=== PATIENT | female | born 1970 | race Caucasian/White ===

== ENCOUNTER 2016-10-13 01:01 | Observation (INO) | payer OTHER ==
--- NOTE | 2016-10-13 01:29 | ER Document Report ---
ED General - General Chief Complaint: Chest Pressure Stated Complaint: CHEST DISCOMFORT Time Seen by Provider: 10/13/16 01:27 Notes: Patient is a pleasant 45-year-old female presents with complaint of some pressure in her chest. She feels sometimes will radiate into her shoulders. Her left arm will sometimes become tingling. She has been on and off for a week. She notices that she gets up and exerts herself is more likely to occur. She is lying at rest it does not occur. No fevers. No vomiting. No difficulty breathing. She has no history of coronary disease. She does have family history of coronary disease. Her dad at age 61. She says her dad started to have heart problems in his mid 40s. No recent leg pain. No history of PE or DVT. No other complaints at this time. TRAVEL OUTSIDE OF THE [place] IN LAST 30 DAYS: No - Related Data Allergies/Adverse Reactions: No Known Allergies Allergy (Unverified 10/13/16 01:14) Past Medical History - Social History Smoking Status: Never Smoker Frequency of alcohol use: None Drug Abuse: None Family History: Reviewed & Not Pertinent Renal/ Medical History: Denies: Hx Peritoneal Dialysis Review of Systems - Review of Systems Notes: My Normal Review Basic REVIEW OF SYSTEMS: CONSTITUTIONAL : Denies fever, chills, or sweats. Denies recent illness. CARDIOVASCULAR: Has chest pain. RESPIRATORY: Denies cough, cold, or chest congestion. Denies shortness of breath, difficulty breathing, or wheezing. GASTROINTESTINAL: Denies abdominal pain. Denies nausea, vomiting, or diarrhea. Denies constipation. Last BM: MUSCULOSKELETAL: Denies neck or back pain or joint pain or swelling. SKIN: Denies rash or skin lesions. NEUROLOGICAL: Denies altered mental status or loss of consciousness. Denies headache. Denies weakness or paralysis or loss of use of either side. Denies problems with gait or speech. Denies sensory or motor loss. ALL OTHER SYSTEMS REVIEWED AND NEGATIVE. Physical Exam - Vital signs Vitals: Temp Pulse Resp BP Pulse Ox 97.7 F 87 18 150/95 H 97 10/13/16 01:12 10/13/16 01:12 10/13/16 01:12 10/13/16 01:12 10/13/16 01:12 - Notes Notes: General Appearance: Well nourished, alert, cooperative, no acute distress, no obvious discomfort. Vitals: reviewed, See vital signs table. Head: no swelling or tenderness to the head Eyes: PERRL, EOMI, Conjuctiva clear Mouth: No decreasd moisture Throat: No tonsillar inflammation, No airway obstruction, No lymphadenopathy Chest wall: No reproducible pain to palpation over chest wall. Lungs: No wheezing, No rales, No rhonci, No accessory muscle use, good air exchange bilaterally. Heart: Normal rate, Regular rythm, No murmur, no rub Abdomen: Normal BS, soft, No rigidity, No abdominal tenderness, No guarding, no rebound, no abdominal masses, no organomegaly Extremities: strength 5/5 in all extremities, good pulses in all extremities, no swelling or tenderness in the extremities, no edema. Skin: warm, dry, appropriate color, no rash Neuro: speech clear, oriented x 3, normal affect, responds appropriately to questions. Course - Vital Signs Vital signs: Temp Pulse Resp BP Pulse Ox 97.8 F 87 16 128/76 H 96 10/13/16 01:32 10/13/16 01:12 10/13/16 02:31 10/13/16 02:31 10/13/16 02:31 - Laboratory Result Diagrams: 10/13/16 01:48 10/13/16 01:48 Laboratory results interpreted by me: 10/13/16 10/13/16 01:48 01:48 MCH 25.8 L RDW 14.1 H Glucose 127 H - EKG Interpretation by Me Additional EKG results interpreted by me: 10/13/16 01:28 EKG is reviewed and interpreted by me. EKG shows normal sinus rhythm with a rate of [address] segment elevation or depression. No ischemic T-wave inversions. UT interval, QRS duration, QTc intervals are within normal range. No old EKG available for comparison. - Transfer of Care Notes: 10/13/16 03:05 His chest pain-free. She has no risk factors for PE. Patient says is more consistent with possible coronary disease based on the fact that she has chest pressure it is worse when she exerts herself. She does have a strong family history. I did speak with the hospitalist who agrees to admit the patient. Dictation of this chart was performed using voice recognition software; therefore, there may be some unintended grammatical errors. Discharge - Discharge Clinical Impression: Chest pain Qualifiers: Chest pain type: unspecified Qualified Code(s): R07.9 - Chest pain, unspecified Condition: Stable Disposition: ADMITTED OBSERVATION Admitting Provider: Hospitalist Unit Admitted: Telemetry
[2016-10-13 01:57] LABS: ABSOLUTE BASOPHILS # (AUTO) 0.2 10^3/uL (0.0-0.2); ABSOLUTE EOSINOPHILS # (AUTO) 0.5 10^3/uL (0.0-0.6); ABSOLUTE LYMPHOCYTES (AUTO) 2.2 10^3/uL (0.5-4.7); ABSOLUTE MONOCYTES (AUTO) 0.9 10^3/uL (0.1-1.4); ABSOLUTE NEUT (AUTO) 6.2 10^3/uL (1.7-8.2); BASOPHILS % (AUTO) 1.8 % (0-2); HEMATOCRIT 39.1 % (36.0-47.0); HEMOGLOBIN 12.6 g/dL (12.0-15.5); HGB HCT DIFFERENCE -1.3; LYMPHOCYTES % (AUTO) 22.5 % (13-45); MEAN CORPUSCULAR HEMOGLOBIN 25.8 pg (27.0-33.4); MEAN CORPUSCULAR HGB CONC 32.3 g/dL (32.0-36.0); MEAN CORPUSCULAR VOLUME 80 fl (80-97); MONOCYTES % (AUTO) 8.9 % (3-13); RED BLOOD COUNT 4.87 10^6/uL (3.72-5.28); RED CELL DISTRIBUTION WIDTH 14.1 % (11.5-14.0); SEGMENTED NEUTROPHILS % (AUTO) 61.8 % (42-78)
[2016-10-13 02:13] LABS: ALANINE AMINOTRANSFERASE 35 U/L (9-52); ALBUMIN 3.8 g/dL (3.5-5.0); ALKALINE PHOSPHATASE 76 U/L (38-126); ANION GAP 10 (5-19); ASPARTATE AMINO TRANSFERASE 32 U/L (14-36); BILIRUBIN,DIRECT 0.3 mg/dL (0.0-0.4); BILIRUBIN,TOTAL 0.4 mg/dL (0.2-1.3); BLOOD UREA NITROGEN 18 mg/dL (7-20); CALCIUM 8.7 mg/dL (8.4-10.2); CARBON DIOXIDE 26 mmol/L (22-30); CHLORIDE 106 mmol/L (98-107); CREATINE KINASE 50 U/L (30-135); CREATININE RESULT 0.58 mg/dL (0.52-1.25); GLUCOSE 127 mg/dL (75-110); SODIUM 142.1 mmol/L (137-145); TOTAL PROTEIN 7.1 g/dL (6.3-8.2)
--- NOTE | 2016-10-13 02:20 | RADIOLOGY REPORT (SQ) ---
EXAM DESCRIPTION: CHEST SINGLE VIEW COMPLETED DATE/TIME: 10/13/2016 2:02 am REASON FOR STUDY: chest pain COMPARISON: None. EXAM PARAMETERS: NUMBER OF VIEWS: One view. TECHNIQUE: Single frontal radiographic view of the chest acquired. RADIATION DOSE: NA LIMITATIONS: None. FINDINGS: LUNGS AND PLEURA: No opacities, masses or pneumothorax. No pleural effusion. MEDIASTINUM AND HILAR STRUCTURES: No masses. Contour normal. HEART AND VASCULAR STRUCTURES: Heart normal in size. Normal vasculature. BONES: No acute findings. Disc desiccation. HARDWARE: None in the chest. OTHER: Hemidiaphragmatic eventration. IMPRESSION: NO ACUTE RADIOGRAPHIC FINDING IN THE CHEST. TECHNICAL DOCUMENTATION: JOB ID: [id number]
[2016-10-13 02:25] LABS: CREATINE KINASE MB 0.64 ng/mL (<4.55)
[2016-10-13 02:26] LABS: TROPONIN I < 0.012 ng/mL
[2016-10-13] MEDS ORDERED: ASPIRIN 325 MG TABLET PO ONE (03:06)
[2016-10-13] MEDS ORDERED: ACETAMINOPHEN 325 MG TABLET PO PRN (03:07)
[2016-10-13] MEDS ORDERED: PROMETHAZINE HCL 25 MG TABLET PO PRN (05:05)
--- NOTE | 2016-10-13 05:21 | PDOC H&P ---
History of Present Illness Admission Date/PCP: 10/13/16 03:14 YOLY Williamson, [place], [place] Patient complains of: chest pain History of Present Illness: TRINI DUNN is a 45 year old obese female with negative personal history of coronary artery disease who presents to the emergency room for evaluation of a one-week history of intermittent episodes of substernal pressure -like discomfort that will radiate into both her shoulders, along with mild associated tingling of her left upper extremity. Discomfort is more noticeable with exertion. Does not occur at rest. No associated nausea vomiting, fever or chills, or shortness of breath. Negative exercise treadmill study at least 10 years ago for similar somewhat more pronounced symptoms at that time. No history of hypertension, myocardial infarction, or congestive heart failure. No history of pulmonary embolus or DVT. No recent long trip with prolonged inactivity, or unusual lower extremity swelling or tenderness, with the exception that over the past several days she has noted mild discomfort, without swelling, of her right calf. Last noted the discomfort approximately 24 hours ago. Family history is remarkable for father with congestive heart failure diagnosed in his 40s. Underwent 2 cardiac valve replacements at 59 years of age. Subsequently 2 years later of septic complications, also requiring dialysis at that time. Negative family history of cardiac disease otherwise. Currently resting quietly, chest pain-free. Patient has been discussed with emergency room physician who evaluated the patient. Laboratory results are listed in [facility] and are reviewed. X-ray summary results are listed below, with full report(s) reviewed. . EKG reviewed. No prior EKG available for comparison. Social history/personal habits: Single. No children. 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 Denies use of alcohol, tobacco, or illicit drugs. Allergies/adverse reactions are listed in [facility] and are reviewed. Home medications none. REVIEW OF SYSTEMS: Constitutional: No fever or chills. Eyes: Wears glasses. ENT: No swallowing problems or complaints. Denies hearing loss. Pulmonary: No current complaints. Cardiovascular: See history and present illness. Gastrointestinal: No current complaints, including nausea or vomiting. Skin: No current complaints, including rashes. Hematologic: Easy bruising. Neurologic: No current complaints, including numbness or tingling. Musculoskeletal: Occasional right knee pain. See history and present illness. Psychiatric: Denies anxiety or depression. Endocrine: No current complaints, including polyuria. Genitourinary: No current complaints, including dysuria. PHYSICAL EXAMINATION: 5 feet 8 inches tall. 108.9 kg. BMI 36.5 kg/m.Temperature 97.8. Pulse 72 and regular. Blood pressure 132/76. Respirations are 18 and unlabored. 100% saturation on room air. Obese otherwise well-developed female appearing approximately her stated age. Pleasant awake alert and cooperative. No obvious distress other than perhaps mildly anxious. Female floor director of emergency nursing Belle is present. Skin is warm and dry. No grossly obvious evidence of rash in areas of skin examined. No subcutaneous nodules palpated. ENT: Hearing grossly normal to normal conversation. Tongue midline on protrusion pink and slightly tacky. Eyes: No scleral icterus. Pupils equal and reactive to light at 4 mm. Halaula conjunctivae. Neck is supple and nontender to gentle active range of motion and palpation. Midline trachea. No palpable thyroid nodule mass enlargement or tenderness. Lymphatic: No palpable cervical or clavicular nodes. Neck and lymphatic exams limited by patient body habitus. Psychiatric: Reasonable insight into acute and chronic medical issues. Oriented to time location and why here. Lungs: Auscultation reveals clear and equal breath sounds bilaterally. No use of accessory respiratory muscles. Cardiovascular: Heart regular rate and rhythm, without gallop murmur or rub. No carotid or abdominal aortic bruits. No ankle or pedal edema. Palpable dorsalis pedis pulses. Abdomen:soft somewhat obese nontender with positive bowel sounds. Unable to adequately evaluate abdomen for masses or organomegaly due to body habitus. Compression of her sternum does not reproduce her prior chest discomfort. Compression of her left epigastrium perhaps slightly does. Extremities: Feet are warm and dry. No calf tenderness to compression. No palpable venous cord in either calf. No grossly obvious visual evidence of calf swelling. Gentle manipulation of lower extremities fails to reveal any obvious evidence of injury or instability to knees hips or ankles. Neurologic: Light touch intact and symmetric at upper and lower extremities. Motor function of major muscle groups upper and lower extremities 5 over 5 and symmetric. Patellar reflexes absent. Absent Babinski. No nystagmus. Past Medical History Cardiac Medical History: Denies: Congestive Heart Failure, DVT, Myocardial Infarction, Hyperlipidema, Hypertension, Pulmonary Embolism Pulmonary Medical History: Denies: Asthma, Bronchitis, Chronic Obstructive Pulmonary Disease (COPD), Pneumonia, Sleep Apnea, Tuberculosis EENT Medical History: Reports: Eyes - Wears glasses Denies: Ears Neurological Medical History: Denies: Hemorrhagic CVA, Ischemic CVA, Seizures Endocrine Medical History: Denies: Diabetes Mellitus Type 1, Diabetes Mellitus Type 2, Hyperthyroidism, Hypothyroidism Renal/ Medical History: Reports: Nephrolithiasis - History of Denies: End Stage Renal Disease GI Medical History: Denies: Cirrhosis, Gastroesophageal Reflux Disease, Hepatitis, Peptic Ulcer Disease Musculoskeltal Medical History: Reports: Other - Intermittent mild right knee pain without diagnosis of arthritis Psychiatric Medical History: Denies: Alcohol Dependency, Bipolar Disorder, Depression, General Anxiety Disorder, Substance Abuse, Tobacco Dependency Hematology: Reports: Other - Easy bruising Denies: Anemia, Bleeding Tendencies Infectious Medical History: Reports: 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 infection Denies: Clostridium Difficile, Hepatitis B, Hepatitis C Past Surgical History Past Surgical History: Reports: None Social History Information Source: Patient, Emergency Med Personnel, [facility] Records Smoking Status: Never Smoker Frequency of Alcohol Use: None Drugs: None - Advance Directive Resuscitation Status: Full Code Surrogate healthcare decision maker:: Mother Family History Family History: Reviewed & Not Pertinent Parental Family History Reviewed: Yes - Mother alive and hypertensive; father of sepsis; valve replacement x 2 Children Family History Reviewed: NA Sibling(s) Family History Reviewed.: Yes - Healthy Medication/Allergy Home Medications: No Home Medications 10/13/16 Allergies/Adverse Reactions: No Known Allergies Allergy (Unverified 10/13/16 01:14) Physical Exam Vital Signs: Temp Pulse Resp BP Pulse Ox 97.8 F 73 18 132/76 H 100 10/13/16 04:18 10/13/16 04:28 10/13/16 04:18 10/13/16 04:18 10/13/16 04:18 Results Impressions: Chest X-Ray 10/13/16 01:33 IMPRESSION: NO ACUTE RADIOGRAPHIC FINDING IN THE CHEST. Assessment & Plan - Diagnosis (1) Chest pain Qualifiers: Chest pain type: unspecified Qualified Code(s): R07.9 - Chest pain, unspecified Is this a current diagnosis for this admission?: YesPlan: Patient will be placed in observation bed under chest pain protocol. Patient understands to notify staff should chest pain recur. Serial troponin . Repeat EKG. lipid panel. I have strongly encouraged patient to be careful getting out of bed, to avoid a fall with injury. Knee high SCDs for DVT prophylaxis, along with subcu Lovenox. Impression and plans were discussed with patient, who concurs. Time spent in evaluation and management of patient: 64 minutes. (2) DVT prophylaxis Is this a current diagnosis for this admission?: Yes (3) Right calf pain Is this a current diagnosis for this admission?: YesPlan: Stat d-dimer. Bilateral lower extremity venous Doppler study. Clinical impression that patient has right lower extremity DVT is low. (4) Obesity Qualifiers: Obesity type: unspecified obesity type Is this a current diagnosis for this admission?: Yes
[2016-10-13] MEDS: LANSOPRAZOLE 30 MG TAB.RAP.DR PO SCH (05:31)
--- NOTE | 2016-10-13 07:11 | EKG REPORT ---
SEVERITY:- BORDERLINE ECG - SINUS RHYTHM PROBABLE LEFT ATRIAL ABNORMALITY : Confirmed by: Onesimo Baltazar 13-Oct-2016 07:11:08
[2016-10-13 07:20] LABS: Direct HDL 35 mg/dL (>40); TRIGLYCERIDES 90 mg/dL (<150)
[2016-10-13 07:31] LABS: DIRECT LDL 85 mg/dL (<100)
[2016-10-13] MEDS: ENOXAPARIN SODIUM INJ 40 MG/0.4 ML DISP.SYRIN SUBCUT SCH (09:42)
[2016-10-13] MEDS: ASPIRIN 81 MG TABLET, ENT COATED PO SCH (09:44)
[2016-10-13] MEDS: DOCUSATE SODIUM 100 MG CAPSULE PO SCH ×2 (09:44→18:24)
--- NOTE | 2016-10-13 12:29 | RADIOLOGY REPORT (SQ) ---
EXAM DESCRIPTION: VENOUS BILATERAL LOWER COMPLETED DATE/TIME: 10/13/2016 11:36 am REASON FOR STUDY: rt calf pain; chest pain COMPARISON: None. TECHNIQUE: Dynamic and static robertson scale and color images acquired of both lower extremity venous sy stems. Selected spectral images acquired with additional compression and augmentation maneuvers. Imag es stored on PACS. LIMITATIONS: None. FINDINGS: RIGHT LEG COMMON FEMORAL AND FEMORAL: Normal phasicity, compression and augmentation. No visualized echogenic m aterial on robertson scale. No defects on color images. POPLITEAL: Normal compression and augmentation. No visualized echogenic material on robertson scale. No de fects on color images. CALF VESSELS: Normal compression and augmentation. No visualized echogenic material on robertson scale. No defects on color image. GSV AND SSV: Normal compression. No visualized echogenic material on robertson scale. No defects on color images. ANY DEEP VENOUS INSUFFICIENCY: Not evaluated. ANY EVIDENCE OF POPLITEAL CYST: No. OTHER: No other significant finding. LEFT LEG COMMON FEMORAL AND FEMORAL: Normal phasicity, compression and augmentation. No visualized echogenic m aterial on robertson scale. No defects on color images. POPLITEAL: Normal compression and augmentation. No visualized echogenic material on robertson scale. No de fects on color images. CALF VESSELS: Normal compression and augmentation. No visualized echogenic material on robertson scale. No defects on color images. GSV AND SSV: Normal compression. No visualized echogenic material on robertson scale. No defects on color images. ANY DEEP VENOUS INSUFFICIENCY: Not evaluated. ANY EVIDENCE POPLITEAL CYST: No. OTHER: No other significant finding. IMPRESSION: NO EVIDENCE DVT OR SVT IN EITHER LEG. TECHNICAL DOCUMENTATION: JOB ID: [id number] [employer]- All Rights Reserved
--- NOTE | 2016-10-13 13:59 | PROGRESS NOTE E ---
Progress Note NAME: TRINI DUNN : 1970 AGE: 45Y DATE: 10/13/2016 ROOM: 425 SUBJECTIVE: The patient is currently lying in bed. She states that she still has intermittent episodes of what she describes as chest flutters. The patient denies any nausea, vomiting. No diarrhea, shortness of breath, dizziness. Chest pain has improved. Patient has been afebrile. Blood pressure has been in a good range. Patient does not voice any other concerns at this time. REVIEW OF SYSTEMS: Rest of review of systems negative. MEDICATIONS: Medications have been reviewed. OBJECTIVE: GENERAL: The patient is a 45-year-old female who is awake, alert, and oriented to person, place, and situation. She is verbal and conversational. Ambulatory. Does not appear to be in acute distress. VITAL SIGNS: As follows: Temperature is 98.3, pulse of 93, respirations 16, blood pressure 132/75. Oxygen saturation 99% on room air. SKIN: Is warm and dry. No rashes. Not diaphoretic. HEENT: Pupils equal round, reactive to light and accommodation. Conjunctivae pink. No JVP. CARDIOVASCULAR SYSTEM: Heart is regular; there is no murmur or rub. CHEST: Clear, symmetrical, unlabored. ABDOMEN: Soft, nontender, nondistended. BACK: No CVA tenderness, sacral edema. EXTREMITIES: No clubbing, cyanosis or edema. PSYCHIATRIC: Appropriate affect; pleasant mood. DIAGNOSTICS: Lab values are as follows: Chemistry obtained on 10/13/2016: Triglycerides are 90, cholesterol 135, LDL 85, VLDL is 18, HDL is 35. Venous Doppler obtained on 10/13/2016: Is unremarkable. IMPRESSION AND PLAN: 1. THE PATIENT HAS HAD A FEW REOCCURRENCES OBTAIN CARDIAC ENZYME. Given the patient's risk factors, will proceed with Cardiolite stress test and monitor. 2. DYSLIPIDEMIA. PATIENT'S LDL IS 85. Deferred statin for now. 3. HYPERTENSION. BLOOD PRESSURES ARE SLIGHTLY ELEVATED. Will continue to monitor this. 4. DVT PROPHYLAXIS. Will continue subcu Lovenox. DISPOSITION: The patient is a FULL CODE. Pending patient's symptomatology and diagnostic findings, will reevaluate in the a.m. TIME SPENT ON THIS FOLLOWUP: Including assessment, plan, physical examination, patient education, and family meeting is 20 minutes. DICTATING PHYSICIAN: LISA BAUTISTA NP [id number] PHY#: [id number] ID: [id number] JOB#: [id number] ACCT: [id number] cc: > MTDD
--- NOTE | 2016-10-13 21:31 | EKG REPORT ---
SEVERITY:- NORMAL ECG - SINUS RHYTHM : Confirmed by: Onesimo Baltazar 13-Oct-2016 21:31:14
[2016-10-14] MEDS: LANSOPRAZOLE 30 MG TAB.RAP.DR PO SCH (05:37)
[2016-10-14] MEDS: ASPIRIN 81 MG TABLET, ENT COATED PO SCH (10:42)
[2016-10-14] MEDS: DOCUSATE SODIUM 100 MG CAPSULE PO SCH (10:42)
[2016-10-14] MEDS ORDERED: REGADENOSON INJ 0.4 MG/5 ML DISP.SYRIN IV ONE (10:49)
[2016-10-14] MEDS: ENOXAPARIN SODIUM INJ 40 MG/0.4 ML DISP.SYRIN SUBCUT SCH (11:15)
[2016-10-14 13:48] VITALS: BP 131/71
--- NOTE | 2016-10-14 15:59 | DISCHARGE SUMMARY E ---
Discharge Summary NAME: TRINI DUNN : 1970 AGE: 45Y ADMITTED: 10/13/2016 DISCHARGED: 10/14/2016 CODE STATUS: FULL CODE. PRIMARY CARE PROVIDER: Dr. Bhanu Drummond, [place], [place]. DISCHARGE DIAGNOSES: 1. Chest pain, most likely musculoskeletal in origin. 2. Heart palpitations. 3. Elevated blood pressures without the diagnosis of hypertension. 4. Dyslipidemia. DISCHARGE MEDICATIONS: None. ALLERGIES: No known drug allergies. DIET: As tolerated. ACTIVITY: As tolerated. HISTORY OF PRESENT ILLNESS: The patient is a pleasant 45-year-old female with a past medical history that is essentially unremarkable. The patient presented to the emergency department with a chief compliant of chest pain. According to the patient, she had a one-week history of intermittent episodes of substernal pressure like discomfort which radiated into the shoulders along with mild associated tingling of her left upper arm. The discomfort was more noticeable with exertion. Denied but did feel it was somewhat reproducible with activity. No associated, nausea, vomiting, fever, or chills. No shortness of breath. The patient did admit to some heart flutters with this. The patient had a negative exercise treadmill study about 10 years ago for similar symptoms. The patient denies any history of hypertension, no history of coronary artery disease, myocardial infarction, CHF. No pulmonary embolism, DVT. No recent long trip or prolonged activity. The patient did admit to some discomfort of her right lower calf which had gone on for about 24 hours. The patient did have a family history which was remarkable for CHF in her father. The patient's father was diagnosed with coronary artery disease in his 40's and underwent two cardiac valve replacements at age 59. Subsequently he two years later of septic complications. The patient was also on dialysis. Negative otherwise family history of heart disease and the patient was brought to the hospital for observation and management. HOSPITAL COURSE: The patient was observed in continuous telemetry unit. Serial cardiac enzymes were obtained, all of which were non-suggestive. The patient remained afebrile and had no events on the lay out helper. The patient has no further replication of symptoms. The patient did undergo a stress test and findings were not consistent with a reversible ischemia and the patient is ready for discharge. DIAGNOSTICS: Lab values are as follows: Hematology obtained on 10/13/2016: WBCs are 10.0, hemoglobin is 12.6, hematocrit is 39.1, platelet count is 387,000. Coagulation studies done on 10/13/2016: D-dimer is 2.7. Chemistry obtained on 10/13/2016: Sodium is 142, potassium 4.0, chloride is 106, carbon dioxide 26, BUN 18, creatinine is 0.58, glucose is 127, calcium is 8.7, bilirubin is 0.4, AST 32, ALT is 35, alkaline phosphatase 76, CK 50, CK MB is 0.24, troponin 0.012, total protein 10.0, albumin 3.8, triglycerides 90, cholesterol 135, LDL is 85, VLDL is 18, HDL is 35, serum HCT is negative. Chest x-ray obtained on 10/13/2016 reveals no acute radiographic findings of the chest. Venous Doppler study obtained 10/13/2016 reveals no evidence of DVT or SVT in either leg. EKG obtained on 10/13/2016 reveals sinus rhythm. PHYSICAL EXAMINATION: GENERAL: On examination, the patient is a well-developed, well-nourished, 45-year-old female who is awake, alert, and oriented to person, place, and situation. She is verbal, conversational, ambulatory, and does not appear to be in any acute distress. VITAL SIGNS: Temperature 98.3, pulse 84, respirations 17, blood pressure 131/71, oxygen saturation is 100% on room air. SKIN: Warm and dry. No rash. Not diaphoretic. HEENT: Pupils equal, round, reactive to light and accommodation. Conjunctivae are pink. No JVP. CARDIOVASCULAR: Heart is regular with no murmur or rub. CHEST: Clear, symmetrical, unlabored. ABDOMEN: Soft, nontender, nondistended. BACK: No CVA tenderness or sacral edema. EXTREMITIES: No clubbing, cyanosis, or edema. PSYCHIATRIC: Appropriate affect, pleasant mood. DISCHARGE PLANNING: The patient is advised to followup with the Dies[employer] Retro[employer] Installer who was home mission worker the day the patient was admitted for hospital followup and for event monitor given the patient's intermittent palpitations. Time spent on this discharge including assessment, physical examination, patient education, and family meeting is 25 minutes. DICTATING PHYSICIAN: LISA BAUTISTA NP [id number] [facility]#: [id number] ID: [id number] JOB#: [id number] ACCT: [id number] cc:TOMMIE TRUJILLO M.D. LISA BAUTISTA NP > KATLYN
--- NOTE | 2016-10-16 12:21 | DRAGON STRESS TEST REPORT ---
Intravenous LexiScan Cardiolite stress test using single photon emmision computerized tomographic. Date of procedure: 7. [place] Provider: Dc López Patient Status.: In Patient. Indication: . Chest pain. Coronary risk factors: Age, and family history of coronary artery disease. Resting EKG: Sinus Rhythm. One PVC, Otherwise within normal limits. Stress EKG: No changes of ischemia. The patient had no chest pain or discomfort , and there were no arrhythmias seen. Reason for termination: Protocol. Conclusions: Normal EKG and hemodynamic response to IV LexiScan. Nuclear data: At rest the patient was given 14.18 millicuries of technetium 99 sestamibi injected intravenously. As per protocol rest non gated SPECT images were obtained. Subsequently the patient was given intravenous LexiScan at a dose of 0.4 mg in 5 mL intravenously, followed by flush with normal saline. Subsequently the stress dose of 44.5 millicuries of technetium 99 sestamibi was injected intravenously. As per protocol stress gated images were obtained. Next Nuclear interpretation: Review of images showed that all segments of the myocardium had normal perfusion at rest, and normal perfusion post stress with IV LexiScan. All segments of the myocardium had normal motion, contraction, and thickening by gated study. T. I D. ratio was normal at 1.00. Computer read rest, and stress left ventricular ejection fraction were 50 %, and 50 % respectively. Visually both the stress and rest ejection fractions were normal, and greater than 55%. 1. There is no scintigraphic evidence of LexiScan induced myocardial ischemia. 2. There is no scintigraphic evidence of myocardial infarction/scar. Recommendations: Aggressive risk factor modification, and treating the underlying co- morbidities. [facility]
== END 2016-10-14 14:17 | disposition home or self-care (01) ==
LOC: ER 01:01 → UNDOADMOB 03:14 → EH 03:14 → 4S 04:15 → EH 04:15 → 4S 05:01
PROVIDERS: ADMIT Family Medicine; ATTEND Family Medicine
DX: R07.89 Other chest pain (principal); R00.2 Palpitations; R03.0 Elevated blood-pressure reading, without diagnosis of hypertension; E78.5 Hyperlipidemia, unspecified; R29.898 Other symptoms and signs involving the musculoskeletal system; E66.9 Obesity, unspecified; R20.2 Paresthesia of skin; Z82.49 Family history of ischemic heart disease and other diseases of the circulatory system; Z68.38 Body mass index [BMI] 38.0-38.9, adult
CPT/HCPCS: 93005 ×2; 99285; 36415; 82553; 82550; 84703; 85025; 80053; 84484; 85379; 80061; 93970; 93017; 71010; 78452; 93010; G0378 ×2; A9500; J2785; J1650 ×2; J3490 ×2; Q9969

== ENCOUNTER → 2017-09-12 | Outpatient (CLI) | payer OTHER ==
[2017-09-12 17:00] LABS: ABSOLUTE BASOPHILS # (AUTO) 0.1 10^3/uL (0.0-0.2); ABSOLUTE EOSINOPHILS # (AUTO) 0.4 10^3/uL (0.0-0.6); ABSOLUTE LYMPHOCYTES (AUTO) 2.3 10^3/uL (0.5-4.7); ABSOLUTE MONOCYTES (AUTO) 0.9 10^3/uL (0.1-1.4); ABSOLUTE NEUT (AUTO) 7.6 10^3/uL (1.7-8.2); BASOPHILS % (AUTO) 1.3 % (0-2); EOSINOPHILS % (AUTO) 3.2 % (0-6); HEMATOCRIT 40.7 % (36.0-47.0); HEMOGLOBIN 13.2 g/dL (12.0-15.5); LYMPHOCYTES % (AUTO) 20.6 % (13-45); MEAN CORPUSCULAR HEMOGLOBIN 25.3 pg (27.0-33.4); MEAN CORPUSCULAR HGB CONC 32.4 g/dL (32.0-36.0); MEAN CORPUSCULAR VOLUME 78 fl (80-97); PLATELET COUNT 456 10^3/uL (150-450); RED BLOOD COUNT 5.21 10^6/uL (3.72-5.28); RED CELL DISTRIBUTION WIDTH 13.5 % (11.5-14.0); SEGMENTED NEUTROPHILS % (AUTO) 66.9 % (42-78); TOTAL CELLS COUNTED % (AUTO) 100 %; WHITE BLOOD COUNT 11.3 10^3/uL (4.0-10.5)
[2017-09-12 17:45] LABS: ERYTHROCYTE SEDIMENTATION RATE 12 mm/hr (0-20)
[2017-09-12 17:49] LABS: C-REACTIVE PROTEIN < 5.0 mg/L (<10.0)
[2017-09-15 13:45] LABS: CYCLIC CITRUL PEPTIDE IGG/A AB 6 units (0-19)
[2017-09-18 13:52] LABS: HLA B 27 DISEASE ASSOCIATION Negative (.)
== END ==
LOC: OD 16:00
PROVIDERS: ATTEND Family Medicine
DX: M54.5 Low back pain (principal)
CPT/HCPCS: 36415; 82306; 84550; 85025; 85652; 86038; 86140; 86200; 86430; 86812

== ENCOUNTER 2018-02-21 | Emergency (ER) | payer OTHER ==
[2018-02-21] MEDS ORDERED: ASPIRIN 81 MG TABLET, CHEWABLE PO ONE (01:01)
--- NOTE | 2018-02-21 01:37 | RADIOLOGY REPORT (SQ) ---
CLINICAL HISTORY: CP COMPARISON: None. TECHNIQUE: XR CHEST 1 VIEW 02/21/2018 1:01 AM POSTAL CARRIER FINDINGS: Cardiac silhouette is normal in size. Lungs are clear without consolidation, atelectasis, mass or edema. There is no pleural effusion. There is no pneumothorax. There are no acute osseous findings. IMPRESSION: Clear lungs.
[2018-02-21 01:51] LABS: ABSOLUTE BASOPHILS # (AUTO) 0.2 10^3/uL (0.0-0.2); ABSOLUTE EOSINOPHILS # (AUTO) 0.4 10^3/uL (0.0-0.6); ABSOLUTE LYMPHOCYTES (AUTO) 2.1 10^3/uL (0.5-4.7); ABSOLUTE MONOCYTES (AUTO) 0.9 10^3/uL (0.1-1.4); ABSOLUTE NEUT (AUTO) 6.7 10^3/uL (1.7-8.2); BASOPHILS % (AUTO) 1.5 % (0-2); EOSINOPHILS % (AUTO) 4.3 % (0-6); HEMATOCRIT 39.5 % (36.0-47.0); HEMOGLOBIN 13.3 g/dL (12.0-15.5); LYMPHOCYTES % (AUTO) 20.9 % (13-45); MEAN CORPUSCULAR HEMOGLOBIN 26.6 pg (27.0-33.4); MEAN CORPUSCULAR HGB CONC 33.8 g/dL (32.0-36.0); MEAN CORPUSCULAR VOLUME 79 fl (80-97); MONOCYTES % (AUTO) 8.3 % (3-13); PLATELET COUNT 431 10^3/uL (150-450); RED BLOOD COUNT 5.01 10^6/uL (3.72-5.28); RED CELL DISTRIBUTION WIDTH 14.5 % (11.5-14.0); TOTAL CELLS COUNTED % (AUTO) 100 %; WHITE BLOOD COUNT 10.3 10^3/uL (4.0-10.5)
[2018-02-21 02:01] LABS: APPEARANCE,URINE SLIGHTLY-CLOUDY; BILIRUBIN,URINE NEGATIVE (NEGATIVE); COLOR,URINE YELLOW; GLUCOSE, URINE NEGATIVE (NEGATIVE); KETONES,URINE NEGATIVE (NEGATIVE); LEUKOCYTE ESTERASE,URINE LARGE (NEGATIVE); NITRITE,URINE NEGATIVE (NEGATIVE); PROTEIN,URINE NEGATIVE (NEGATIVE); URINE SPECIFIC GRAVITY 1.015; UROBILINOGEN,URINE NEGATIVE mg/dL (<2.0)
--- NOTE | 2018-02-21 02:18 | ER Document Report ---
ED General - General Chief Complaint: Chest Pain Stated Complaint: CHEST PRESSURE, PAIN IN LEFT ARM AND SHOULDER Time Seen by Provider: 02/21/18 00:51 Notes: Patient is a 47-year-old female presenting to the emergency department complaining of chest pressure radiating down her left arm and into her left neck intermittent for the last 3 days. Patient also admits to occasional shortness of breath upon exertion. Patient denies fever, URI symptoms, nausea, vomiting, diarrhea. Patient does admit to urinary frequency and slight dysuria. Pt. denies change in CP with movement or deep inspiration. Past medical history: Hypertension, kidney stones Medications: HCTZ, Claritin allergies: None Surgical history: None Patient denies cigarette smoking, illicit drug use, EtOH use Patient has a stress test on 10/13/2016 which was normal at that time. Patient is currently denying chest pain. States that is intermittent at times and she is worried because she has had multiple close friends have heart attacks recently. TRAVEL OUTSIDE OF THE [place] IN LAST 30 DAYS: No - Related Data Allergies/Adverse Reactions: No Known Allergies Allergy (Unverified 10/13/16 01:14) Past Medical History - General Information source: Patient - Social History Smoking Status: Never Smoker Chew tobacco use (# tins/day): No Frequency of alcohol use: None Drug Abuse: None Lives with: Family Family History: Reviewed & Not Pertinent Patient has suicidal ideation: No Patient has homicidal ideation: No - Past Medical History Cardiac Medical History: Reports: Hx Hypertension Denies: Hx Congestive Heart Failure, Hx DVT, Hx Heart Attack, Hx Hypercholesterolemia, Hx Pulmonary Embolism Pulmonary Medical History: Denies: Hx Asthma, Hx Bronchitis, Hx COPD, Hx Pneumonia, Hx Sleep Apnea, Hx Tuberculosis Neurological Medical History: Denies: Hx Seizures Endocrine Medical History: Denies: Hx Diabetes Mellitus Type 1, Hx Diabetes Mellitus Type 2, Hx Hyperthyroidism, Hx Hypothyroidism Renal/ Medical History: Reports: Hx Kidney Stones. Denies: Hx End Stage Renal Disease, Hx Peritoneal Dialysis GI Medical History: Denies: Hx Cirrhosis, Hx Gastroesophageal Reflux Disease, Hx Hepatitis, Hx Ulcer Musculoskeletal Medical History: Reports Hx Arthritis, Denies Hx Multiple Sclerosis Psychiatric Medical History: Denies: Hx Bipolar Disorder, Hx Depression, Hx Schizophrenia Infectious Medical History: Reports: Hx MRSA - History 10 years ago of skin infection. Denies: Hx C-Diff, Hx Hepatitis Past Surgical History: Reports: Hx Kidney (Renal Surgery) - lithotropsy Review of Systems - Review of Systems Constitutional: See HPI EENT: See HPI Cardiovascular: See HPI Respiratory: See HPI Gastrointestinal: See HPI Genitourinary: See HPI Female Genitourinary: See HPI Musculoskeletal: No symptoms reported Skin: No symptoms reported Hematologic/Lymphatic: No symptoms reported Neurological/Psychological: No symptoms reported Physical Exam - Vital signs Vitals: Temp Pulse Resp BP Pulse Ox 98.4 F 74 20 143/86 H 98 02/21/18 00:21 02/21/18 00:21 02/21/18 00:21 02/21/18 00:21 02/21/18 00:21 - Notes Notes: GENERAL: Alert, interacts well. No acute distress. HEAD: Normocephalic, atraumatic. EYES: Pupils equal, round, and reactive to light. Extraocular movements intact. ENT: Oral mucosa moist, tongue midline. NECK: Full range of motion. Supple. Trachea midline. LUNGS: Clear to auscultation bilaterally, no wheezes, rales, or rhonchi. No respiratory distress. HEART: Regular rate and rhythm. No murmur ABDOMEN: Soft, non-tender. Non-distended. Bowel sounds present in all 4 quadrants. EXTREMITIES: Moves all 4 extremities spontaneously. Nonpitting edema noted bilaterally lower extremities (patient states this is her normal), normal radial and dorsalis pedis pulses bilaterally. No cyanosis. BACK: no cervical, thoracic, lumbar midline tenderness. No saddle anesthesia, normal distal neurovascular exam. No CVA tenderness NEUROLOGICAL: Alert and oriented x3. Normal speech. cranial nerves II through XII grossly intact PSYCH: Normal affect, normal mood. SKIN: Warm, dry, normal turgor. No rashes or lesions noted. Course - Re-evaluation Re-evalutation: Patient continues to be without chest pain in the emergency room. Patient states she has had multiple friends recently have heart issues which is what worried her and presented her to the emergency room. Troponin negative, no signs of leukocytosis, electrolyte abnormalities or anemia. Urinary tract infection via UA will send for culture. Discussed results with patient at bedside treating with antibiotics. Close return precautions discussed. - Vital Signs Vital signs: Temp Pulse Resp BP Pulse Ox 98.4 F 74 11 L 131/78 H 97 02/21/18 00:21 02/21/18 00:21 02/21/18 04:01 02/21/18 04:01 02/21/18 04:01 - Laboratory Result Diagrams: 02/21/18 01:40 02/21/18 03:06 Laboratory results interpreted by me: 02/21/18 02/21/18 00:41 01:40 MCV 79 L MCH 26.6 L RDW 14.5 H Ur Leukocyte Esterase LARGE H Discharge - Discharge Clinical Impression: Urinary tract infection Qualifiers: Urinary tract infection type: acute cystitis Hematuria presence: without hematuria Qualified Code(s): N30.00 - Acute cystitis without hematuria Chest pain Qualifiers: Chest pain type: other chest pain Qualified Code(s): R07.89 - Other chest pain Condition: Stable Disposition: HOME, SELF-CARE Instructions: Cephalexin ([facility]), Urinary Tract Infection ([facility]) Prescriptions: Cephalexin Monohydrate [Keflex 500 mg Capsule] 500 mg PO BID 7 Days #14 capsule Referrals: CRISTINA MERCHANT INTAKE COORDINATOR [Primary Care Provider] - Follow up as needed
[2018-02-21 02:21] LABS: CREATINE KINASE MB 0.94 ng/mL (<4.55)
[2018-02-21 02:22] LABS: TROPONIN I < 0.012 ng/mL
[2018-02-21 03:27] LABS: ALANINE AMINOTRANSFERASE 25 U/L (9-52); ALBUMIN 3.7 g/dL (3.5-5.0); ALKALINE PHOSPHATASE 63 U/L (38-126); ANION GAP 13 (5-19); ASPARTATE AMINO TRANSFERASE 19 U/L (14-36); BILIRUBIN,DIRECT 0.1 mg/dL (0.0-0.4); BILIRUBIN,TOTAL 0.5 mg/dL (0.2-1.3); BLOOD UREA NITROGEN 20 mg/dL (7-20); CALCIUM 9.1 mg/dL (8.4-10.2); CARBON DIOXIDE 27 mmol/L (22-30); CHLORIDE 105 mmol/L (98-107); CREATINE KINASE 69 U/L (30-135); GLUCOSE 110 mg/dL (75-110); POTASSIUM 4.1 mmol/L (3.6-5.0); TOTAL PROTEIN 6.5 g/dL (6.3-8.2)
[2018-02-21 04:10] VITALS: BP 131/78
--- NOTE | 2018-02-21 07:42 | EKG REPORT ---
SEVERITY:- NORMAL ECG - SINUS RHYTHM : Confirmed by: Edin Michael MD 21-Feb-2018 07:41:51
== END 2018-02-21 04:10 | disposition home or self-care (01) ==
LOC: ER
DX: R07.89 Other chest pain (principal); N30.00 Acute cystitis without hematuria; I10 Essential (primary) hypertension; Z79.899 Other long term (current) drug therapy
CPT/HCPCS: 36415; 71045; 80053; 81001; 81025; 82550; 82553; 84484; 85025; 87086; 87088; 93005; 93010; 99285

== ENCOUNTER 2019-01-18 05:24 | Day surgery (SDC) | payer OTHER ==
[2019-01-11 10:37] LABS: HEMATOCRIT 42.9 % (36.0-47.0); HEMOGLOBIN 14.2 g/dL (12.0-15.5); MEAN CORPUSCULAR HEMOGLOBIN 26.7 pg (27.0-33.4); MEAN CORPUSCULAR HGB CONC 33.2 g/dL (32.0-36.0); MEAN CORPUSCULAR VOLUME 80 fl (80-97); PLATELET COUNT 421 10^3/uL (150-450); RED BLOOD COUNT 5.34 10^6/uL (3.72-5.28); WHITE BLOOD COUNT 10.1 10^3/uL (4.0-10.5)
[2019-01-11 10:39] LABS: APPEARANCE,URINE CLEAR; BILIRUBIN,URINE NEGATIVE (NEGATIVE); COLOR,URINE YELLOW; GLUCOSE, URINE NEGATIVE (NEGATIVE); KETONES,URINE NEGATIVE (NEGATIVE); LEUKOCYTE ESTERASE,URINE SMALL (NEGATIVE); NITRITE,URINE NEGATIVE (NEGATIVE); PROTEIN,URINE NEGATIVE (NEGATIVE); URINE SPECIFIC GRAVITY 1.014; UROBILINOGEN,URINE NEGATIVE mg/dL (<2.0)
[2019-01-11 10:58] LABS: ANION GAP 9 (5-19); BLOOD UREA NITROGEN 17 mg/dL (7-20); CALCIUM 9.6 mg/dL (8.4-10.2); CARBON DIOXIDE 28 mmol/L (22-30); CHLORIDE 104 mmol/L (98-107); GLUCOSE 88 mg/dL (75-110); POTASSIUM 4.2 mmol/L (3.6-5.0)
[~2019-01-18 05:24] MED LIST: CEFAZOLIN 1 GM/D5W RTU 1 GM/50 ML RTUPB IV ONE; CEFAZOLIN 1 GM/D5W RTU 1 GM/50 ML RTUPB IV PRN; LACTATED RINGERS 1000 ML IV PRN
[2019-01-18] MEDS ORDERED: ACETAMINOPHEN 0 MG/0 ML RTUPB IV ONE (06:20)
[2019-01-18] MEDS ORDERED: KETOROLAC TROMETHAMINE 60 MG/2 ML SDV ONE (06:27)
[2019-01-18] MEDS ORDERED: FENTANYL CITRATE INJ/PF 100 MCG/2 ML AMPUL ONE (06:27)
[2019-01-18] MEDS ORDERED: MIDAZOLAM 2 MG/2 ML INJ ONE (06:28)
[2019-01-18] MEDS ORDERED: PROPOFOL INJ 200 MG/20 ML VIAL IV ONE (06:28)
[2019-01-18] MEDS ORDERED: LIDOCAINE 2% INJ (20 MG/ML) 20 ML MDV ONE (06:29)
[2019-01-18] MEDS ORDERED: PROMETHAZINE HCL INJ 25 MG/1 ML VIAL IV PRN ×2 (06:40)
[2019-01-18] MEDS ORDERED: MEPERIDINE HCL/PF INJ 25 MG/1 ML DISP.SYRIN IV PRN (06:40)
[2019-01-18] MEDS ORDERED: OXYCODONE-ACETAMINOPHEN 5-325 MG TABLET PO PRN ×3 (06:40→08:30)
[2019-01-18] MEDS ORDERED: DIPHENHYDRAMINE HCL 50 MG/ML VIAL IV PRN (06:40)
[2019-01-18] MEDS ORDERED: FENTANYL CITRATE INJ/PF 100 MCG/2 ML AMPUL IV PRN ×3 (06:40)
[2019-01-18] MEDS ORDERED: LIDOCAINE 1% INJ-PF (10 MG/ML) 30 ML SDV ONE (07:28)
[2019-01-18] MEDS ORDERED: PROMETHAZINE HCL INJ 25 MG/1 ML VIAL IM PRN (08:30)
[2019-01-18] MEDS ORDERED: MORPHINE INJ 4 MG DOSE (EDIT ROUTE) INJ PRN (08:30)
--- NOTE | 2019-01-18 08:54 | Operative Report ---
Operative Report DATE OF SURGERY: 01/18/19 PREOPERATIVE DIAGNOSIS: post menopausal bleeding POSTOPERATIVE DIAGNOSIS: Same plus endometrial polyp OPERATION: Hysteroscopy MyoSure endometrial sampling SURGEON: JOAQUINA SPENCER ANESTHESIA: LMAC TISSUE REMOVED OR ALTERED: polyp COMPLICATIONS: None ESTIMATED BLOOD LOSS: Less than 5 mL's INTRAOPERATIVE FINDINGS: A stenotic cervix cervix was encountered it was dilated with black lacrimal duct probes to admit a operative hysteroscope. A endometrial polyp was noted in the anterior wall the uterus and sampled in its entirety PROCEDURE: INDICATIONS FOR PROCEDURE: The patient had abnormal uterine bleeding for several months unresponsive to usual outpatient management. The usual risks of bleeding, infection, anesthesia, and damage to organs and tissues had been discussed with the patient and understood. PROCEDURE: The patient was taken to the operating room, placed in a modified lithotomy position. After adequate anesthesia was ascertained, we prepped and draped in the usual manner for a hysteroscopy and NovaSure ablation. The cervix readily dialated with small dilators. A single-tooth tenaculum was placed on the anterior lip of the cervix after anesthesia was instilled. Hysteroscopy ensued. The above-noted findings were appreciated sure device was deployed and the polyp was removed in toto no adnexal masses were noted on exam under anesthesia there was left on drain during the case sponge needle estimate counts are correct at the end of the case
[2019-01-18 11:12] VITALS: BP 138/79
[2019-01-18] MEDS ORDERED: IBUPROFEN 800 MG TABLET PO SCH (14:00)
== END 2019-01-18 09:30 | disposition home or self-care (01) ==
LOC: OROUT 05:24
PROVIDERS: ATTEND Specialist
DX: N95.0 Postmenopausal bleeding (principal); N84.0 Polyp of corpus uteri; Z79.899 Other long term (current) drug therapy; N88.2 Stricture and stenosis of cervix uteri; I10 Essential (primary) hypertension
CPT/HCPCS: 86900; 86901; 36415 ×3; 86850; 84132; 84703; 85027; 80048; 81001; 88305 ×2; 00952; 58563; J2250; J3490 ×2; J0690; J3010; J2704; 952; J0131; J1885